=== PATIENT | male | born 1970 | race Asian ===

== ENCOUNTER 2020-07-08 01:04 | Emergency (ER) | payer OTHER ==
[~2020-07-08] VITALS: Ht 172.7 cm; Wt 86.2 kg
[2020-07-08 01:13] VITALS: BP 121/74
== END 2020-07-08 02:07 | disposition home or self-care (01) ==
LOC: ER 01:13
DX: Z20.822 Contact with and (suspected) exposure to COVID-19 (principal)
CPT/HCPCS: 99283; C9803; U0003

== ENCOUNTER 2020-07-15 03:26 | Emergency (ER) | payer OTHER ==
[~2020-07-15] VITALS: Ht 172.7 cm; Wt 86.2 kg
[2020-07-15 03:27] VITALS: BP 129/68
== END 2020-07-15 03:55 | disposition home or self-care (01) ==
LOC: ER 03:27
DX: Z20.822 Contact with and (suspected) exposure to COVID-19 (principal)
CPT/HCPCS: 99283; C9803; U0003

== ENCOUNTER 2020-07-22 02:05 | Emergency (ER) | payer OTHER ==
[~2020-07-22] VITALS: Ht 172.7 cm; Wt 86.2 kg
[2020-07-22 02:10] VITALS: BP 124/79
== END 2020-07-22 02:37 | disposition home or self-care (01) ==
LOC: ER 02:06
DX: Z20.822 Contact with and (suspected) exposure to COVID-19 (principal)
CPT/HCPCS: 99283; C9803; U0003

== ENCOUNTER → 2020-07-29 | Emergency (ER) | payer OTHER ==
[~2020-07-29] VITALS: Ht 172.7 cm; Wt 86.2 kg
[2020-07-29 00:45] VITALS: BP 141/70
== END | disposition home or self-care (01) ==
LOC: ER 00:40
DX: Z20.822 Contact with and (suspected) exposure to COVID-19 (principal)
CPT/HCPCS: 99283; C9803; U0003

== ENCOUNTER 2020-08-07 03:09 | Emergency (ER) | payer OTHER ==
[~2020-08-07] VITALS: Ht 172.7 cm; Wt 86.2 kg
[2020-08-07 03:09] VITALS: BP 125/75
== END 2020-08-07 04:21 | disposition home or self-care (01) ==
LOC: ER 03:19
DX: Z20.822 Contact with and (suspected) exposure to COVID-19 (principal)
CPT/HCPCS: 99283; C9803; U0003

== ENCOUNTER 2020-08-13 04:06 | Emergency (ER) | payer OTHER ==
[~2020-08-13] VITALS: Ht 172.7 cm; Wt 86.2 kg
[2020-08-13 04:07] VITALS: BP 128/69
== END 2020-08-13 05:35 | disposition home or self-care (01) ==
LOC: ER 04:06
DX: Z20.822 Contact with and (suspected) exposure to COVID-19 (principal)
CPT/HCPCS: 99283; C9803; U0003

== ENCOUNTER 2022-02-11 08:36 | Outpatient (CLI) | payer BC | END 2022-02-11 23:59 | disposition home or self-care (01) | LOC: CT 08:36 | PROVIDERS: ATTEND Family Medicine | DX: R91.8 Other nonspecific abnormal finding of lung field (principal); Z87.891 Personal history of nicotine dependence | CPT/HCPCS: 71250-TC ==

== ENCOUNTER 2022-04-08 08:55 | Outpatient (CLI) | payer BC | END 2022-04-08 23:59 | disposition home or self-care (01) | LOC: US 08:55 | PROVIDERS: ATTEND Family Medicine | DX: K80.20 Calculus of gallbladder without cholecystitis without obstruction (principal) | CPT/HCPCS: 76700-TC ==

== ENCOUNTER 2022-04-25 11:14 | Outpatient (CLI) | payer BC | END 2022-04-25 23:59 | disposition home or self-care (01) | LOC: RAD 11:14 | PROVIDERS: ATTEND Family Medicine | DX: M79.671 Pain in right foot (principal); M79.672 Pain in left foot | CPT/HCPCS: 73630-TC ==

== ENCOUNTER 2022-05-20 08:22 | Outpatient (CLI) | payer BC | END 2022-05-20 23:59 | disposition home or self-care (01) | LOC: WOU 08:22 | PROVIDERS: ATTEND Podiatrist Foot & Ankle Surgery | DX: M72.2 Plantar fascial fibromatosis (principal); M79.671 Pain in right foot; I10 Essential (primary) hypertension | CPT/HCPCS: G0463 ==

== ENCOUNTER 2022-06-10 08:25 | Outpatient (CLI) | payer BC ==
[2022-06-10 10:17] LABS: CALCIUM, SERUM 9.8 mg/dL (8.5-10.1); POTASSIUM 3.7 mmol/L (3.5-5.1)
== END 2022-06-10 23:59 | disposition home or self-care (01) ==
LOC: LAB 08:25
PROVIDERS: ATTEND Internal Medicine Pulmonary Disease
DX: R91.1 Solitary pulmonary nodule (principal)
CPT/HCPCS: 80048-TC

== ENCOUNTER 2022-06-10 08:32 | Outpatient (CLI) | payer BC ==
[2022-06-10] MEDS ORDERED: TRIAMCINOLONE ACETONIDE SUSP 40 MG/ML 1 ML IJ ONE (08:33)
[2022-06-10] MEDS ORDERED: ETHYL CHLORIDE SPRAY 1 EA BOTTLE TP ONE (08:33)
[2022-06-10] MEDS ORDERED: DEXAMETHASONE SOD PHOSPHATE 4 MG/ML VIAL IV ONE (08:33)
== END 2022-06-10 23:59 | disposition home or self-care (01) ==
LOC: WOU 08:32
PROVIDERS: ATTEND Podiatrist Foot & Ankle Surgery
DX: M72.2 Plantar fascial fibromatosis (principal); M79.671 Pain in right foot; I10 Essential (primary) hypertension; E78.5 Hyperlipidemia, unspecified
CPT/HCPCS: 20550; J1100

== ENCOUNTER 2022-08-10 09:20 | Outpatient (CLI) | payer BC | END 2022-08-10 23:59 | disposition home or self-care (01) | LOC: RAD 09:20 | PROVIDERS: ATTEND Family Medicine | DX: Z01.818 Encounter for other preprocedural examination (principal) | CPT/HCPCS: 71046 ==

== ENCOUNTER 2024-08-29 07:48 | Outpatient (CLI) | payer BC ==
[2024-08-29 16:21] LABS: HIV-1/2 ANTIBODY NON REACTIVE (NONREACTIVE)
[2024-08-30 04:07] LABS: HEPATITIS B SURFACE AB (QUAL) Reactive (.); HEPATITIS C VIRUS AB Non Reactive (Non Reactive)
[2024-08-30 05:08] LABS: FOLIC ACID > 20.0 ng/mL (>3.0)
[2024-08-30 08:49] LABS: RHEUMATOID FACTOR SCREEN NEGATIVE (NEGATIVE)
[2024-08-30 11:07] LABS: FREE KAPPA LT CHAINS SERUM 18.3 mg/L (3.3-19.4); FREE LAMBDA LT CHAIN SERUM 19.4 mg/L (5.7-26.3); KAPPA/LAMBDA RATIO SERUM 0.94 (0.26-1.65)
[2024-09-02 09:07] LABS: *SPE A/G RATIO 0.9 (0.7-1.7); *SPE ALBUMIN 3.4 g/dL (2.9-4.4); *SPE ALPHA-1-GLOBULIN 0.2 g/dL (0.0-0.4); *SPE ALPHA-2-GLOBULIN 0.8 g/dL (0.4-1.0); *SPE BETA GLOBULIN 1.2 g/dL (0.7-1.3); *SPE GLOBULIN, TOTAL 3.7 g/dL (2.2-3.9); *SPE M-SPIKE 0.3 g/dL (Not Observed); *SPE PROTEIN TOTAL 7.1 g/dL (6.0-8.5); *SPEGAMMA GLOBULIN 1.4 g/dL (0.4-1.8)
== END 2024-08-29 23:59 | disposition home or self-care (01) ==
LOC: US 07:48
PROVIDERS: ATTEND Internal Medicine Hematology & Oncology
DX: D72.819 Decreased white blood cell count, unspecified (principal); D75.1 Secondary polycythemia
CPT/HCPCS: 36415; 76700-TC; 82607-TC; 83615-TC; 84155; 84165; 84439-TC; 84443-TC; 86140-TC; 86431-TC; 86706; 86803; 87340; 87806

== ENCOUNTER 2024-10-24 08:03 | Outpatient (CLI) | payer BC ==
[2024-10-24 08:40] LABS: PLATELET COUNT (AUTO) 209 K/uL (150-450); RED BLOOD CELL COUNT(AUTO) 5.73 MIL/uL (4.5-6.0); RED CELL DISTRIBUTION WIDTH 13.3 % (11.5-15.0); WHITE BLOOD COUNT (AUTO) 4.5 K/uL (4.3-11.0)
[2024-10-24 08:51] LABS: ASPARTATE AMINOTRANSFERASE 21.0 U/L (15-37); CALCIUM, SERUM 9.7 mg/dL (8.5-10.1); CREATININE 1.2 mg/dL (0.6-1.3); SODIUM SERUM 138.0 mmol/L (136-145); TOTAL PROTEIN, SERUM 7.4 g/dL (6.4-8.2); UREA NITROGEN, BLOOD 15.0 mg/dL (7-18)
[2024-10-24 09:28] LABS: INR 0.98 (0.91-1.10)
== END 2024-10-24 23:59 | disposition home or self-care (01) ==
LOC: LAB 08:03
PROVIDERS: ATTEND Internal Medicine Hematology & Oncology
DX: D75.1 Secondary polycythemia (principal); D72.819 Decreased white blood cell count, unspecified; D47.2 Monoclonal gammopathy
CPT/HCPCS: 36415; 80053-TC; 82784; 84155; 84165; 85025-TC; 85610-TC; 85730-TC; 86334

== ENCOUNTER 2024-11-27 09:48 | Outpatient (CLI) | payer BC ==
[2024-11-27 11:14] LABS: PLATELET COUNT (AUTO) 222 K/uL (150-450); RED BLOOD CELL COUNT(AUTO) 6.56 MIL/uL (4.5-6.0); RED CELL DISTRIBUTION WIDTH 13.8 % (11.5-15.0); WHITE BLOOD COUNT (AUTO) 3.9 K/uL (4.3-11.0)
[2024-11-27 11:26] LABS: ASPARTATE AMINOTRANSFERASE 25.0 U/L (15-37); CALCIUM, SERUM 10.0 mg/dL (8.5-10.1); CREATININE 1.4 mg/dL (0.6-1.3); SODIUM SERUM 139.0 mmol/L (136-145); TOTAL PROTEIN, SERUM 8.2 g/dL (6.4-8.2); UREA NITROGEN, BLOOD 17.0 mg/dL (7-18)
[2024-11-27 11:47] LABS: EOSINOPHILS % (MANUAL) 2 % (0-4); LYMPHOCYTES % (MANUAL) 41 % (16-48); MONOCYTES % (MANUAL) 10 % (0-11.0); NEUTROPHILS % (MANUAL) 47 (42-76); PLATELET ESTIMATE ADEQUATE
[2024-11-28 07:07] LABS: FREE KAPPA LT CHAINS SERUM 19.6 mg/L (3.3-19.4); FREE LAMBDA LT CHAIN SERUM 20.9 mg/L (5.7-26.3); KAPPA/LAMBDA RATIO SERUM 0.94 (0.26-1.65)
[2024-11-29 20:11] LABS: BETA-2 MICROGLOBULIN, SERUM 1.7 mg/L (0.6-2.4)
== END 2024-11-27 23:59 | disposition home or self-care (01) ==
LOC: LAB 09:48
PROVIDERS: ATTEND Internal Medicine Hematology & Oncology
DX: D47.2 Monoclonal gammopathy (principal); D72.819 Decreased white blood cell count, unspecified; D64.9 Anemia, unspecified
CPT/HCPCS: 36415; 80053-TC; 82232; 82784; 84155; 84165; 85027-TC; 86334

== ENCOUNTER 2024-12-02 09:54 | Outpatient (CLI) | payer BC | END 2024-12-02 23:59 | disposition home or self-care (01) | LOC: LAB 09:54 | PROVIDERS: ATTEND Internal Medicine Hematology & Oncology | DX: D47.2 Monoclonal gammopathy (principal) | CPT/HCPCS: 77075-TC ==